=== PATIENT | male | born 1960 | race Two or more races ===

== ENCOUNTER 2019-02-26 22:11 | Emergency (ER) | payer OTHER ==
[~2019-02-26] VITALS: Ht 165.1 cm; Wt 73.9 kg
[~2019-02-26 22:11] MED LIST: ALLO300T80 PO; AMLODIPINE BENAZEPRIL; GLYB-135 PO; LOVA-39 PO
[2019-02-26 22:21] VITALS: BP 137/84
[2019-02-26] MEDS ORDERED: IBUPROFEN 800 MG TABLET PO ONE (22:30)
[2019-02-26] MEDS ORDERED: IBUPROFEN 800 MG TABLET ONE (22:32)
--- NOTE | 2019-02-26 23:02 | NUR ---
PT PROVIDED CRUTCHES, USE DEMONSTRATED AND TAUGHT BACK. RIGHT KNEE ANTHONY WRAPPED BY ANATOLIY JOHNSTON
== END 2019-02-26 23:07 | disposition home or self-care (01) ==
LOC: ED 23:00
DX: G89.11 Acute pain due to trauma (principal); M25.461 Effusion, right knee; X50.0XXA Overexertion from strenuous movement or load, initial encounter; Y93.89 Activity, other specified; Y92.69 Other specified industrial and construction area as the place of occurrence of the external cause; Y99.0 Civilian activity done for income or pay
CPT/HCPCS: 99283

== ENCOUNTER 2020-05-21 16:01 | Emergency (ER) | payer BC, OTHER ==
[~2020-05-21] VITALS: Ht 165.1 cm; Wt 75.0 kg
[~2020-05-21 16:01] MED LIST changes: -GLYB-135 PO; +GLYB1TAB16 PO
[2020-05-21] MEDS ORDERED: ACETAMINOPHEN 500 MG TABLET ONE (16:19)
[2020-05-21] MEDS ORDERED: ACETAMINOPHEN 500 MG TABLET PO ONE (16:30)
[2020-05-21] MEDS ORDERED: DEXAMETHASONE 4 MG TABLET PO ONE (16:30)
[2020-05-21 17:09] LABS: BASOPHILS % (AUTO) 0 % (0-1); EOSINOPHILS % (AUTO) 0 % (1-7); LYMPHOCYTES % (AUTO) 16 % (22-44); MEAN CORPUSCULAR HEMOGLOBIN 20.2 pg (27.5-34.5); MEAN CORPUSCULAR HGB CONC 31.4 g/dL (33.2-36.2); MEAN PLATELET VOLUME 8.4 fL (7.4-10.4); MONOCYTES % (AUTO) 10 % (2-9); NEUTROPHILS % (AUTO) 74 % (42-75); PLATELET COUNT 387 x10^3/uL (130-400); RED CELL DISTRIBUTION WIDTH 16.3 % (9.4-14.8)
[2020-05-21 17:17] LABS: MD NO
[2020-05-21 17:19] LABS: ALANINE AMINOTRANSFERASE 26 U/L (12-78); ALBUMIN 3.2 g/dL (3.4-5.0); ANION GAP 8 mmol/L (5-15); CALCIUM 8.2 mg/dL (8.5-10.1); CHLORIDE 101 mmol/L (98-107); CREATININE 1.72 mg/dL (0.7-1.3)
[2020-05-21 17:21] LABS: ALKALINE PHOSPHATASE 54 U/L (45-117); BILIRUBIN,TOTAL 0.3 mg/dL (0.2-1.0); TOTAL PROTEIN 7.7 g/dL (6.4-8.2)
--- NOTE | 2020-05-21 17:49 | NUR ---
CHANGE CONSULTANT: PT TO ROOM FROM [facility]
[2020-05-21] MEDS ORDERED: DEXAMETHASONE 4 MG TABLET ONE (17:55)
[2020-05-21] MEDS ORDERED: CEFTRIAXONE PMX 1GM/50ML 50 ML IV ONE (18:00)
[2020-05-21] MEDS ORDERED: DOXYCYCLINE 100MG TABLET PO ONE (18:00)
[2020-05-21] MEDS ORDERED: ASPI81TA45 PO (18:00)
[2020-05-21] MEDS ORDERED: PIOG30TA67 PO (18:00)
[2020-05-21] MEDS ORDERED: BENA40TA3 PO (18:00)
--- NOTE | 2020-05-21 18:05 | NUR ---
PT COVID +, SYMPTOMS INCLUDE FEVER, COUGH, FATIGUE. DENIES CP. PT NOT IN DISTRESS. RA O2 AT 95%
[2020-05-21] MEDS ORDERED: CEFTRIAXONE PMX 1GM/50ML 50 ML ONE (18:19)
[2020-05-21] MEDS ORDERED: DOXYCYCLINE 100MG TABLET ONE (18:19)
--- NOTE | 2020-05-21 18:50 | NUR ---
REPORT TO NIRMAL
[2020-05-21] MEDS ORDERED: BAMLANIVIMAB 700 MG in SODIUM CHLORIDE 0.9% 250 ML IVPB ONE (19:00)
[2020-05-21] MEDS ORDERED: FILTER 0.22 MICRON IV ONE (19:00)
--- NOTE | 2020-05-21 20:25 | NUR ---
1899: REPORT FROM JANIS ARITA. FIRST CONTACT WITH PATIENT, PT AWAKE ALERT AND ORIENTED. IV PATENT. VSS. 2025: POST BAMBAM INFUSION, VSS. NO ADVERSE RXNS NOTED. WILL CONTINUE TO MONITOR.
--- NOTE | 2020-05-21 21:12 | NUR ---
REPORT RECIEVED FROM JANIS KINNEY. PT RESTING IN [facility], STATES NO NEEDS AT THIS TIME. AWAITING ERP EVAL AT [id number]
[2020-05-21 21:50] VITALS: BP 94/61
== END 2020-05-21 22:15 | disposition home or self-care (01) ==
LOC: ED 18:02
DX: U07.1 COVID-19 (principal); J12.9 Viral pneumonia, unspecified; Z87.891 Personal history of nicotine dependence; R00.0 Tachycardia, unspecified
CPT/HCPCS: 36415; 71045; 80053; 83605; 84145; 85025; 87040; 93005; 99285; J0696; J7050; M0239; Q0239